=== PATIENT | female | born 1940 | race Caucasian/White ===

== ENCOUNTER 2023-11-06 06:28 | Day surgery (SDC) | payer MEDICARE, BC, SELFPAY ==
--- NOTE | 2023-11-02 15:57 | PTCARENOTE ---
Abnormal EKG on 10/12/23. Dr. Shay aware. No intervention needed.
[2023-11-06] VITALS (18 sets, daily range): BP systolic 10–145; BP diastolic 37–78; BMI 24.8
[2023-11-06] MEDS: NORMOSOL-R 1000 IV (07:45)
[2023-11-06 12:19] LABS: Glucose - Point of Care 164 mg/dl (70-99)
--- NOTE | 2023-11-06 17:10 | PTCARENOTE ---
pt arrived at [id number] via wheelchair, assisted to bathroom then to recliner chair. pt aaox3, vss, oriented to room. family member present during intake and assessment. Dressing on right neck intact. upon assessment ZOE noted not to be holding
suction despite multiple attempts. Blanquita Banuelos Rn, Rn who transported pt to floor in contact with MD Sheth who replied 'should be ok' per TT communication to OBDULIA Juares who passed along information to this RN. pt made aware of circumstance. no
other pressing issues. care plan continues to be followed.
[2023-11-06] MEDS: D5/0.9% SODIUM CHLORIDE 1000 IV (17:16)
[2023-11-06] MEDS: PERCOCET 5/325 1 TABLET PO ×2 (17:23→21:38)
[2023-11-07] MEDS: TYLENOL 650 MG PO (01:33)
[2023-11-07 03:25] VITALS: BP 127/62
[2023-11-07 07:29] VITALS: BP 152/71
[2023-11-07] MEDS: PERCOCET 5/325 1 TABLET PO (08:16)
--- NOTE | 2023-11-07 09:20 | W.PN.ENT ---
Today's Communication
-
seen at bedside
Impression / Plan
-
doing well 1 day s/p right parotidectomy
drain removed
patient tolerated well
will discharge to home
follow up in 1 weeks as scheduled
Subjective Data
-
doing well 1 day post op
taking pos now
Objective Data
-
Vital Signs
Temp Pulse Resp BP Pulse Ox
98.3 F 67 16 127/62 97
11/07/23 03:25 11/07/23 03:25 11/07/23 03:25 11/07/23 03:25 11/07/23 03:25
Intake & Output
11/06/23 11/07/23 11/08/23
06:59 06:59 06:59
Intake:
Oral fluids 960 / 960
IV fluids (Total) 700 / 700
normosol 100 / 100
Output:
Drain Output (Total) 35 / 35
Right Neck Leonidas-Vera 35 / 35
Other:
Number of approximated MODERATE 3
amounts of urine
Physical Exam
-
drain in place, flaps flat
facial nerve intact
Chest: Clear
Respiratory: Clear
Data Reviewed
-
Radiology Results: Report Reviewed
--- NOTE | 2023-11-07 10:25 | CM ---
CM reviewed chart
Pt discharged prior to CM meeting for IA
No dc needs noted
== END 2023-11-07 10:14 | disposition home or self-care (01) ==
LOC: SDS 06:28
PROVIDERS: ATTENDING PHYSICIAN Otolaryngology Facial Plastic Surgery
DX: D11.0 Benign neoplasm of parotid gland (principal); D37.030 Neoplasm of uncertain behavior of the parotid salivary glands
CPT/HCPCS: 42415; 88307; 82962